=== PATIENT | male | born 2005 | race Caucasian/White ===

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

== ENCOUNTER 2025-06-06 22:31 | Emergency (ER) | payer BC, SELFPAY ==
[2025-06-06 22:35] VITALS: BP 136/84; PULSE 65; RESP 18; TEMP 36.8; O2SAT 100; BMI 27.3
--- OUTSIDE RECORDS SUMMARY | 2025-06-06 22:49 | XMS_ITS | Clinical Summary ---
Author Organization [facility] Address [address] [place] [id number] Care Team Providers Care Detective Investigator Name Role Phone Ramiro Clark M.D. Primary Care Provider [phone] Source Comments [facility] is fully rolled out with thefollowing exceptions:General Clinical Research [facility] Social History Tobacco Use Types Packs/Day Years Used Date Smoking Tobacco: Never Assessed Sex and Gender Information Value Date Recorded Sex Assigned at Not on file Legal Sex Male 9:50 AM EDT Gender Identity Not on file Sexual Orientation Not on file Plan of Treatment Health Maintenance Due Date Last Done Comments MMR IMMUNIZATION (1 of 1 - S tandard series) 2006 DTAP/Tdap/Td IMMUNIZATION (1 - Tdap) 2012 VARICELLA IMMUNIZATION (1 of 2 - 13+ 2-dose series) 2018 HPV IMMUNIZATION (1 - Male 3 -dose series) 2020 MENINGOCOCCAL B VACCINE (1 o f 2 - Standard) 2021 COVID-19 Vaccine (1 - 2023-2 5 season) 2024 HEPATITIS B IMMUNIZATION (1 of 3 - 19+ 3-dose series) 2024 AMB SEASONAL FLU VACCINE (#1) 08/06/2025 HIB IMMUNIZATION Aged Out No longer e ligible based on patient's age to complete this topic IPV IMMUNIZATION Aged Out No longer e ligible based on patient's age to complete this topic MCV4 IMMUNIZATION Aged Out No longer eligible based on patient's age to complete this topic PNEUMOCOCCAL IMMUNIZATION Aged Out No longer eligible based on patient's age to complete this topic Respiratory Syncytial Virus (RSV) <20mo Aged Out No longer eligible b ased on patient's age to complete this topic Insurance AETNA [facility] Care Teams Detective Investigator Relationship Specialty Start Date End Date Ramiro Clark M.D. [address] [facility] [address] [place] [address] PCP - General External Family Practice 07/24/21
--- OUTSIDE RECORDS SUMMARY | 2025-06-06 22:49 | XMS_ITS | Clinical Summary ---
Author Organization Healthcare Address [address] [place] [address] Care Team Providers Care Legal Entity Controller Name Role Phone Ramiro Clark MD Primary Care Provider + [phone] Allergies No known active allergies Social History Tobacco Use Types Packs/Day Years Used Date Smoking Tobacco: Never Alcohol Use Standard Drinks/Week Comments No 0 (1 standard drink = 0.6 oz pur e alcohol) Sex and Gender Information Value Date Recorded Sex Assigned at Not on file Legal Sex Male 6:00 PM EDT Gender Identity Not on file Sexual Orientation Not on file Last Filed Vital Signs Vital Sign Reading Time Taken Comments Blood Pressure 110/67 01/10/2024 1:03 PM EDT Pulse 72 01/10/2024 1:03 PM EDT Temperature 36.9 C (98.4 F) 01/10/2024 1:03 PM EDT Respiratory Rate 16 01/10/2024 1:03 PM EDT Oxygen Saturation 97% 01/10/2024 1:03 PM EDT Inhaled Oxygen Concentration - - Weight 74.7 kg (164 lb 10.9 oz) 024 12:58 PM EDT Height 140.3 cm (4' 7.25 ) 03/21/2016 1 1:22 AM EDT Body Mass Index - - Plan of Treatment Health Maintenance Due Date Last Done Comments [facility]-Depression Screening 2005 [facility]-HIV Screening 2005 [facility]-Hepatitis C Screening 2005 [facility]-Infant/Child/Adol SDOH Screenings 2005 Fluoride Varnish 06/25/2006 [facility]-IPV Vaccines (2 of 3 - 4-dose series) 01/26/2010 12/29/2009 [facility]- SDOH Screenings 2023 [facility]-Adult SDOH Screenings 2023 IBI-AUOOY-04 Vaccine ( season) 2024 [facility]-Hepatitis B Vaccines (1 of 3 - 19+ 3-dose series) 2024 [facility]-Influenza Vaccine (#1) 2025 [facility]-DTaP,Tdap,and Td Vaccines (4 - Td or Tdap) 02/05/2027 02/05/2017, 12/29/2009, 04/30/2007 [facility]-Zoster Vaccines (1 of 2) 2055, 01/29/2007 [facility]-Pneumococcal Vaccine: Pediatrics (0 to 5 Years) and At-Risk Patients (6 to 49 Years) Aged Out 10/31/2006 No longer eligible b ased on patient's age to complete this topic [facility]-HIB Vaccines Completed 01/29/2007 [facility]-Varicella Vaccines Completed 0, 01/29/2007 HPV Vaccines Completed 12/02/2017, 04/30/2017, 02/05/2017 [facility]-Hepatitis A Vaccines Completed 018, 02/05/2017 [facility]-Rotavirus Vaccines Aged Out No lo nger eligible based on patient's age to complete this topic Insurance [employer] Care Teams Legal Entity Controller Relationship Specialty Start Date End Date Ramiro Clark MD [address] [facility] [address] [place] [address] PCP - General 02/16/21
--- NOTE | 2025-06-07 00:26 | ED_ITS ---
Discharge Plan Disposition Patient Disposition: Home, Self-Care Condition: Good Prescriptions Prescriptions: New amoxicillin-pot clavulanate 875-125 mg tablet 1 tab PO BID Qty: 20 0RF No Action amoxicillin 500 mg tablet 500 mg PO BID 10 Days Qty: 20 0RF Referrals Follow up/Referrals: Ramiro Clark MD [Primary Care Provider, Medical] - See instructions Activity Restrictions/Add. Instructions Additional Instructions/Restrictions: You were evaluated in the ER and are believed to be appropriate for discharge at this time. Take the prescribed antibiotics as directed. Do not skip doses, do not stop taking them early. Take Tylenol or ibuprofen if needed for pain. Do not exceed the recommended dose on the bottle. Drink water and eat a small snack each time you take these medications to avoid side effects. You can also take an bbta-cvk-xymknzp antihistamine such as Zyrtec or Xyzal to help relieve congestion. Make an appointment with your primary care doctor for reevaluation in a few days. Return to the ER with any new, worsening, or otherwise concerning symptoms. Clinical Impressions Clinical Impression: Bilateral acute otitis media Print Language Print Language: Danish Discharge ED Provider: Bj Diaz General Adult HPI General Chief complaint: Ear Stated complaint: Right earache Time Seen by Provider: 06/07/25 00:18 Mode of Arrival: Ambulatory Source of Information: Patient Description of Symptoms (Recalled from ER Triage Doc. by RN): Pt presents for evaluation of right ear pain. Pt states he was seen 2 weeks ago at the clinic and was prescribed antibiotics. Pt reports he is still having pain, and has slight drainage to his ear History of Present Illness HPI narrative: Otherwise healthy 19-year-old male presents to the ER for complaints of bilateral ear pain, right worse than left. Patient states he was seen in the clinic a few weeks ago for the pain and was prescribed amoxicillin for 10 days. He states he took all of this and it seemed slightly better but has gotten worse again in the last few days. 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 He has no other complaints or concerns. Related Data Previous Rx's ?Medication ?Instructions ?Recorded amoxicillin 500 mg tablet 500 mg PO BID 10 days #20 ta bs 05/11/25 amoxicillin 875 mg-potassium 1 tab PO BID #20 tabs 11/30 clavulanate 125 mg tablet Allergies Allergy/AdvReac Type Severity Reaction Status Date / Time No Known Allergies Allergy Verified 05/11/25 13:33 [facility] Disclaimer: The information contained in this section may have been updated after the patient was seen, as this information can be updated by other users. Medical History , NURSE PRACTITIONER) Rupture of anterior cruciate ligament of right knee S/P ACL recon with autograft hamstrings. No significant past medical history Surgical History , NURSE PRACTITIONER) Status post arthroscopic knee surgery ACL reconstruction No history of previous surgery Family History , NURSE PRACTITIONER) No significant family history Social History , NURSE PRACTITIONER) Smoking Status: Never smoker alcohol intake: never substance use type: denies use current occupational status: student Travel in the last 8 weeks?: None household members: family housing: house Have you lived/traveled outside US in past 30 days?: No Contact w/someone who lives/traveled outside US past 30 days?: No Exposure to someone with infectious disease in past 14 days?: No Do you have a fever (greater than 100.4 F or 38 C)?: No Have you tested positive for COVID-19?: No Exposed to someone with COVID-19 in past 14 days?: No Do you have a sore throat?: No Do you have a cough?: No Do you have any weakness?: No Do you have any diarrhea?: No Are you experiencing any unusual bleeding?: No Do you have any muscle aches/pain?: No Do you have any abdominal pain?: No Are you experiencing loss of taste or smell?: No Other Medical History Have you received the Pneumonia Vaccine: No ROS Obtained: Yes Systems reviewed as appropriate & no additional complaints except as documented Per HPI Physical Exam General General appearance: alert and in no apparent distress Head Head exam: atraumatic and normocephalic Eye Eye exam: Present PERRL and EOMI ENT ENT exam: Present mucous membranes moist, normal external ear exam and other (No mastoid redness, swelling, or tenderness); Absent normal oropharynx (Mildly erythematous posterior oropharynx with obvious postnasal drip, tonsils only slightly enlarged, structures midline, no exudate) or TM's normal bilaterally (Bilateral tympanic membranes erythematous, right TM has purulent effusion) Neck Neck exam: Present normal inspection and full ROM; Absent lymphadenopathy Chest Chest inspection: Present symmetric chest wall rise Respiratory Respiratory exam: Absent respiratory distress or stridor Cardiovascular Cardiovascular exam: Present regular rate and normal rhythm Extremities Exam Extremities exam: Present full ROM Neurological Exam Neurological exam: Present alert and oriented X3; Absent motor sensory deficit Psychiatric Psychiatric exam: Present normal affect and normal mood Skin Skin exam: Present warm and dry Medical Decision Making Medical Records Medical records reviewed: Yes I reviewed the patient's medical records. Screening: Per USPSTF and CDC recommendations, given the prevalence of disease in our region, it is our hospital?s policy to screen for HIV and viral Hepatitis for all patients aged 18 and over and those with ongoing risk factors. Evelio Inquiry Pt receiving controlled substance: No Vital Signs: 06/06/25 22:35 Temperature 98.3 F Temperature Source Temporal Artery Scan Pulse Rate [Right] 65 Respiratory Rate 18 Blood Pressure [Right Arm] 136/84 Blood Pressure Mean [Right Arm] 101 Blood Pressure Source [Right Arm] Automatic Cuff Blood Pressure Position [Right Arm] Sitting 02 Sat by Pulse Oximetry 100 Orders (Tests/Meds): ED MEDICATIONS Generic Name Dose Route Start Last Admin Trade Name Freq PRN Reason Stop Dose Admin Amoxicillin/Clavulanate Potassium 1 each 06/07/25 00:23 Amoxicillin/Clavulanate Potassium 875/125mg Tablet PO 06/07/25 00:24 ONCE ONE Medical Decision Narrative: In summary, this otherwise healthy 19year old male presents to the emergency department today with bilateral ear pain, right worse than Left. On initial evaluation patient is hemodynamically stable, afebrile, overall well-appearing, physical exam is notable for bilateral tympanic membrane erythema with bulging and purulent effusion on the right, there is postnasal drip and mild posterior oropharyngeal erythema but no exudate, airway patent, tolerating secretions, remainder of exam benign. Differential diagnosis includes but is not limited to otitis media, considered otitis externa but there is no evidence of this, also considered mastoiditis given prolonged ear infection but there is no evidence of this either. No labs or imaging are indicated at this time. Patient failed amoxicillin so he likely needs broader antibiotic. Augmentin was administered in the ER and prescribed for outpatient management. Patient was given instructions on symptomatic management, follow up instructions, and return preca utions for the emergency department. Patient indicated understanding and was discharged in stable condition. Critical Care Critical Care Time Critical Care Time: No
[2025-06-07 00:34] VITALS: BP 132/81; PULSE 65; RESP 20; TEMP 36.7; O2SAT 98
[2025-06-07] MEDS: AMOXICILLIN/CLAVULANATE POTASSIUM 875/125MG TABLET 1 EACH PO (00:36)
== END 2025-06-07 00:39 | disposition home or self-care (01) ==
PROVIDERS: Emergency Provider Emergency Medicine; PCP Family Medicine
DX: H66.93 Otitis media, unspecified, bilateral (principal)
CPT/HCPCS: 99283